=== PATIENT | female | born 1985 | race Caucasian/White ===

== ENCOUNTER 2021-12-22 12:36 | Emergency (ER) | payer OTHER, SELFPAY ==
[2021-12-22 12:48] VITALS: BP 129/86; PULSE 92; RESP 18; TEMP 36.4; O2SAT 99
--- NOTE | 2021-12-22 13:05 | ED.GENADULT ---
HPI - General Adult General Chief complaint: Urogenital-Female Stated complaint: Abdominal Pain,Female Urogenital,Sore Throat History of Present Illness HPI narrative: Mrs Patel is a 36 y/o female. Presents to [facility] today with multiple complaints. 1: Client reports to have been possibly exposed to Trichomonas STI. -She tells me she has had recent and unprotected sexual intercourse with a male partner, whom recently told her that his past partner was notified that she had trichomonas. -Client reports urinary frequency, dysuria, as well as 'white' vaginal discharge in the past 72 hours. -Reports a mild degree of suprapubic discomfort. No gross abdominal pain, N/V/D. -No pelvic pain or pain w/intercourse. -She denies fever, hematuria, or flank pain. 2: She tells me she has been exposed to two additional family members ill with Covid 19 in the past 2 weeks. -Client is concerned for viral illness, as she has since developed a sore throat. -No dysphagia or involuntary drooling. -Tells me she had body aches earlier in the week, however this has since subsided. -No cough, congestion, chest pain, dyspnea. Otherwise asymptomatic and w/o additional complaints. Related Data Home Medications Medication Instructions Recorded Confirmed alprazolam 0.5 mg tablet (Xanax) 0.5 mg PO BID 12/22/21 12/22/21 copper 380 square mm intrauterine 1 device intrauterine ONCE 12/22/21 12/22/21 device (ParaGard T 380A) Allergies Allergy/AdvReac Type Severity Reaction Status Date / Time No Known Allergies Allergy Verified 12/22/21 13:10 Review of Systems Review of Systems: CONSTITUTIONAL: Denies fever, chills, sweats. EYES: Denies visual changes, redness, discharge. ENT: Denies rhinorrhea, congestion, otalgia. + sore throat. CARDIOVASCULAR: Denies chest pain, palpitations, edema. RESPIRATORY: Denies dyspnea, wheezing, cough GASTROINTESTINAL: Suprapubic pain. No gross abdominal pain, nausea, vomiting, diarrhea. GENITOURINARY: + dysuria, abnormal discharge. No hematuria, flank pain. SKIN: Denies rash or itching. MUSCULOSKELETAL: Denies acute back pain, joint pain, or myalgia. NEUROLOGIC: Denies numbness, or focal weakness. PSYCHIATRIC: Denies anxiety or depression. Exam Narrative: GENERAL: This is a well-nourished, well-developed adult, in no apparent distress. HEAD: normocephalic. EYES: Sclera clear/white. EARS: External ears normal. NOSE: External nose normal. THROAT: Mucous membranes moist, posterior pharynx clear. No exudates. NECK: Neck supple, non-tender without lymphadenopathy, masses or thyromegaly. CARDIOVASCULAR: Regular rate and rhythm without murmurs, gallops, or rubs. RESPIRATORY: Clear to auscultation. Breath sounds equal bilaterally. No wheezes, rales, or rhonchi. GASTROINTESTINAL: Abdomen soft, non-tender, nondistended. Bowel sounds are active. No signs of acute abdomen. No CVA tenderness. SKIN: warm, intact with no suspicious lesions or rash. NEURO: Alert, active, and age appropriate. Course Course Level of Care: Express Care Visit Vital Signs Vital signs: Vital Signs Temperature 36.4 C L 12/22/21 12:48 Pulse Rate 92 12/22/21 12:48 Respiratory Rate 18 12/22/21 12:48 Blood Pressure 129/86 12/22/21 12:48 Pulse Oximetry 99 12/22/21 12:48 Oxygen Delivery Room Air 12/22/21 12:48 Temperature 36.4 C L 12/22/21 12:48 Pulse Rate 92 12/22/21 12:48 Respiratory Rate 18 12/22/21 12:48 Blood Pressure 129/86 12/22/21 12:48 Pulse Oximetry 99 12/22/21 12:48 Oxygen Delivery Room Air 12/22/21 12:48 Medical Decision Making [facility] Narrative Medical decision making narrative: -HCG U: Negative. -Urine Dip: Trace Leukocytes. No nitrites. Cloudy, normal PH, no protein. -Sars Covid is negative. -Client has been treated w/the recommended State Medication STI ATB regimen in Clinic (Rocephin/Azithromycin) post reported probable exposure. -DC to home on or
[2021-12-22] MEDS: cefTRIAXone 500 MG, LIDOCAINE HCL 1% LOCAL INJ 1 ML IM (13:24)
[2021-12-22] MEDS: AZITHROMYCIN 250 MG TABLET 1000 MG PO (13:27)
== END 2021-12-22 13:40 | disposition home or self-care (01) ==
PROVIDERS: Emergency Provider Nurse Practitioner Adult Health; PCP Nurse Practitioner Family
DX: R30.0 Dysuria (principal); J02.9 Acute pharyngitis, unspecified; Z20.2 Contact with and (suspected) exposure to infections with a predominantly sexual mode of transmission; Z20.822 Contact with and (suspected) exposure to COVID-19
CPT/HCPCS: 81003; 87086; 87088; 87426; 87491; 87591; 87661; 96372; 99214; A9270; C9803; G0463; J0696